=== PATIENT | female | born 1950 | race Caucasian/White ===

== ENCOUNTER 2016-06-10 10:25 | Outpatient (CLI) | payer OTHER ==
--- NOTE | 2016-06-10 13:32 | DIAGNOSTIC IMAGING REPORT ---
PROCEDURE: XR BARIUM SWALLOW INDICATION: Hoarseness. Dysphagia. TECHNIQUE: Double contrast study. Fluoroscopy time, 4.1 minutes; 1683.86 mGy. 62 fluoroscopic images (including cine fluoroscopy of the esophagus). COMPARISON: None. FINDINGS: Pharyngoesophagus is normal. No constricting or polypoid lesions. No evidence of aspiration. Patulous gastroesophageal junction with mild gastroesophageal reflux. Esophagus is otherwise normal. IMPRESSION: 1. Normal pharyngoesophagus. 2. Patulous gastroesophageal junction with mild gastroesophageal reflux. 3. Findings discussed with the patient.
== END 2016-06-10 23:00 ==
LOC: XR SRH 10:25
DX: K21.9 Gastro-esophageal reflux disease without esophagitis (principal)